=== PATIENT | male | born 1995 | race Caucasian/White ===

== ENCOUNTER 2019-01-16 22:42 | Emergency (ER) | payer SELFPAY ==
[2019-01-16 23:10] LABS: #Eosinphils 0.2 thou/uL (0.0-0.7); #Lymphocytes 2.6 thou/uL (1.20-3.40); #Monocytes 0.7 thou/uL (0.11-0.59); #Neutrophils 4.1 thou/uL (1.40-6.50); %Basophils 0.5 % (0.0-1.0); %Eosinophils 2.4 % (0.0-10.0); %Lymphocytes 34.2 % (21.0-51.0); %Monocytes 9.6 % (0.0-10.0); %Neutrophils 53.3 % (42.0-75.0); Hemoglobin 14.1 g/dL (14.0-18.0); Mean Corpuscular HGB CONC 32.8 g/dL (32.0-36.0); Mean Corpuscular Volume 88.6 fL (78.0-98.0); Mean Platelet Volume 6.8 fL (7.4-10.4); Platelet Count 243 thou/uL (130-400); RBC Distribution Width 11.6 % (11.5-14.5); Red Blood Cell (RBC) Count 4.87 mill/uL (4.70-6.10); White Blood Cell (WBC) Count 7.6 thou/uL (4.8-10.8)
[2019-01-16] MEDS ORDERED: Sodium Chloride 0.9% 1,000 ML ONE (23:19)
[2019-01-16 23:29] LABS: ALT (SGPT) 30 U/L (8-55); AST (SGOT) 21 U/L (5-34); Albumin 4.7 g/dL (3.5-5.0); Alcohol Less than 10 mg/dL (Less than 10); Alkaline Phosphatase 68 U/L (40-110); Anion Gap 15 mmol/L (10-20); BUN (Urea Nitrogen) 15 mg/dL (8.9-20.6); Bilirubin, Total 0.4 mg/dL (0.2-1.2); Calc. Creatinine Clearance 0 mL/min (70-130); Calcium 9.7 mg/dL (7.8-10.44); Carbon Dioxide 22 mmol/L (22-29); Chloride 107 mmol/L (98-107); Estimated GFR-MDRD Greater than 90; Globulin 2.5 g/dL (2.4-3.5); Glucose 90 mg/dL (70-105); Potassium 4.1 mmol/L (3.5-5.1); Protein, Total 7.2 g/dL (6.0-8.3); Sodium 140 mmol/L (136-145)
--- NOTE | 2019-01-16 23:38 | CT ---
CT BRAIN NONCONTRAST: DATE: 01/16/2019 HISTORY: 23-year-old male with headache FINDINGS: There is no evidence of acute intra-axial or extra-axial hemorrhage. There is no midline shift or any other mass effect. There is no extra-axial fluid collection. The ventricles are normal in size and configuration. The tympanomastoid cavities, and the upper portions of the paranasal sinuses included in these images, are grossly clear. Calvarium is intact. IMPRESSION: Normal.
--- NOTE | 2019-01-16 23:43 | RAD ---
RADIOGRAPH CHEST AND LEFT RIBS 3 VIEW: DATE: 01/16/2019 HISTORY: 23-year-old male with left chest, rib pain. FINDINGS: The visualized lung worrell are clear. The cardiomediastinal silhouette and hilar shadows are normal. The lateral costophrenic angles are sharp. The osseous structures appear normal, including no evidence of left rib fracture. There is no pneumothorax. IMPRESSION: Negative.
[2019-01-16 23:47] LABS: Clarity Cloudy (Clear)
[2019-01-16 23:48] LABS: Bilirubin Negative (Negative); Blood, Urine Negative (Negative); Glucose, Urine (Dipstick) Negative (Negative); Leukocyte Negative (Negative); Nitrite Negative (Negative); Protein, Urine (Dipstick) Negative (Neg-Trace); Urobilinogen 0.2 mg/dL (Less than 2)
[2019-01-16 23:58] LABS: Amphetamine Not Detected (NotDetected); Barbiturates Screen Not Detected (NotDetected); Benzodiazepine Screen Not Detected (NotDetected); Cocaine Metabolite Screen Not Detected (NotDetected); Medtox Control Line Valid? VALID (VALID); Methadone Not Detected (NotDetected); Methamphetamine Not Detected (NotDetected); Opiate Screen Not Detected (NotDetected); Oxycodone Screen Not Detected (NotDetected); Phencyclidine (PCP) Not Detected (NotDetected); THC/Cannabinoid Screen Not Detected (NotDetected); Tricyclic Screen Not Detected (NotDetected)
== END 2019-01-17 00:15 ==
LOC: NAV ERS 22:42
DX: R55 Syncope and collapse (principal); S06.9X9A Unspecified intracranial injury with loss of consciousness of unspecified duration, initial encounter; J45.909 Unspecified asthma, uncomplicated; F31.9 Bipolar disorder, unspecified; F20.9 Schizophrenia, unspecified; F90.9 Attention-deficit hyperactivity disorder, unspecified type; F17.210 Nicotine dependence, cigarettes, uncomplicated; W01.198A Fall on same level from slipping, tripping and stumbling with subsequent striking against other object, initial encounter
CPT/HCPCS: 70450; 80053; 80306; 80307; 81003; 84484; 85025; 93005; J7050